=== PATIENT | female | born 1975 | race Hispanic/Latino ===

== ENCOUNTER 2017-10-26 09:29 | Day surgery (SDC) | payer OTHER, SELFPAY ==
[2017-10-19 09:53] VITALS: BMI 28.7
--- NOTE | 2017-10-26 | PATH_ITS ---
[facility] Accession Number: [id number] . 01 Material submitted: . ENDOMETRIAL CURETTINGS . 02 Diagnosis: Endometrial Curettings: Portions of secretory endometrium; negative for glandular hyperplasia, cytologic atypia, and malignancy. [facility]/10/29/2017 . 02 Electronically signed: . Faye Balderas MD, Pathologist NPI- [id number] . 01 Gross description: . Received one formalin-filled container, labeled with the patient's name, labeled endometrial curettings. The specimen consists of a 1.25 cc aggregate of mucoid material and blood, which is filtered, wrapped, and entirely submitted in one cassette. ([id number]) /FRR . 02 Pathologist provided ICD-10: N92.4 . 02 CPT . 816911 Performed at: 01 [facility] [address] [id number] MD Narciso Nguyen MD Phone: [phone] Performed at: 02 [facility] [address] [address] [place], [place] [id number] MD August Villarreal MD Phone: [phone]
[2017-10-26 10:04] VITALS: BP 121/83; PULSE 69; RESP 16; TEMP 36.3; O2SAT 100; BMI 28.7
[2017-10-26] MEDS: LACTATED RINGERS 1,000 ML 100 ML IV (10:12)
--- NOTE | 2017-10-26 10:16 | PM.PREOP ---
Pre-operative Note Interval Note Pre-op Check: History & Physical exam performed today
--- NOTE | 2017-10-26 10:22 | SUR.OPER ---
Lithotomy on padded OR bed, head on pillow, arms secured on padded arm boards at <90 degrees abduction. Legs secured in padded yellow fins stirrups.
[2017-10-26 11:05] VITALS: BP 122/87; PULSE 68; RESP 16; TEMP 36.1; O2SAT 95
--- NOTE | 2017-10-26 11:05 | PM.HP.1 ---
History of Present Illness Date Patient Seen: 10/26/17 Time Patient Seen: 10:01 Chief complaint: [id number] D&C HYSTEROSCOPY; NOVASURE ABLATION Patient History Medical History Anxiety (Acute) Fatigue (Acute) Low vitamin D level (Acute) Menorrhagia (Acute) Surgical History History of third molar tooth extraction (Resolved 1998) Status post delivery (Resolved 09/22/08) Status post delivery (Resolved 03/26/14) Status post tubal ligation (Resolved 03/26/14) Family & Social History Social History: household members spouse,family Tobacco & Substance use: Smoking Status Former smoker alcohol intake current Substance Use Type does not use Meds Home Medications Medication Instructions Recorded Confirmed Type acetaminophen [Tylenol] 325 mg PO PRN PRN 10/26/17 10/26/17 History sumatriptan succinate [Imitrex] 50 mg PO PRN PRN 10/26/17 10/26/17 History Allergies Allergy/AdvReac Type Severity Reaction Status Date / Time No Known Drug Allergies Allergy Verified 10/26/17 09:51 Exam Vital Signs (past 8 hours): Vital Signs - 8 hr 10/26/17 10:04 Temperature 97.3 F L Pulse Rate 69 Respiratory Rate 16 Blood Pressure 121/83 H Pulse Oximetry 100 Pulse Oximetry 100 Oxygen Delivery Method Room Air Narrative Exam Narrative: HEENT: No thyromegaly, no anterior cervical or supraclavicular lymphadenopathy. Lungs:Clear to auscultation bilaterally, no wheezes. Cardiovascular: Regular rate and rhythm, no murmurs, rubs, or gallops. Abdomen: Well-healed scars. No hepatosplenomegaly. No masses palpable. External genitalia: Normal Vagina: Normal Cervix: Normal Bimanual exam: 7 Week size uterus. Mobile.] Rectal: No masses. Assessment & Plan (1) Menorrhagia, premenopausal: Current visit: Yes Status: Acute Plan: Assessment/Plan Narrative: Assessment: 41-year-old with menorrhagia Plan: D&C hysteroscopy with NovaSure endometrial ablation The risks, benefits, and alternatives to the procedure were explained to the patient. The risks including bleeding, infection, and uterine perforation. She understands these risks and agrees to proceed. A full capital P AR-Q was held and consent form was signed.
--- NOTE | 2017-10-26 11:08 | P.HP_ITS ---
History of Present Illness Date Patient Seen: 10/26/17 Time Patient Seen: 10:01 Chief complaint: [id number] D&C HYSTEROSCOPY; NOVASURE ABLATION Patient History Medical History Anxiety (Acute) Fatigue (Acute) Low vitamin D level (Acute) Menorrhagia (Acute) Surgical History History of third molar tooth extraction (Resolved 1998) Status post delivery (Resolved 09/22/08) Status post delivery (Resolved 03/26/14) Status post tubal ligation (Resolved 03/26/14) Family & Social History Social History: household members spouse,family Tobacco & Substance use: Smoking Status Former smoker alcohol intake current Substance Use Type does not use Meds Home Medications Medication Instructions Recorded Confirmed Type acetaminophen [Tylenol] 325 mg PO PRN PRN 10/26/17 10/26/17 History sumatriptan succinate [Imitrex] 50 mg PO PRN PRN 10/26/17 10/26/17 History Allergies Allergy/AdvReac Type Severity Reaction Status Date / Time No Known Drug Allergies Allergy Verified 10/26/17 09:51 Exam Vital Signs (past 8 hours): Vital Signs - 8 hr 3 10/26/17 10:04 Temperature 97.3 F L Pulse Rate 69 Respiratory Rate 16 Blood Pressure 121/83 H Pulse Oximetry 100 Pulse Oximetry 100 Oxygen Delivery Method Room Air Narrative Exam Narrative: HEENT: No thyromegaly, no anterior cervical or supraclavicular lymphadenopathy. Lungs:Clear to auscultation bilaterally, no wheezes. Cardiovascular: Regular rate and rhythm, no murmurs, rubs, or gallops. Abdomen: Well-healed scars. No hepatosplenomegaly. No masses palpable. External genitalia: Normal Vagina: Normal Cervix: Normal Bimanual exam: 7 Week size uterus. Mobile.] Rectal: No masses. Assessment & Plan (1) Menorrhagia, premenopausal: Current visit: Yes Status: Acute Plan: Assessment/Plan Narrative: Assessment: 41-year-old with menorrhagia Plan: D&C hysteroscopy with NovaSure endometrial ablation The risks, benefits, and alternatives to the procedure were explained to the patient. The risks including bleeding, infection, and uterine perforation. She understands these risks and agrees to proceed. A full capital P AR-Q was held and consent form was signed.
[2017-10-26 11:10] VITALS: BP 134/97; PULSE 62; RESP 16; O2SAT 98
--- NOTE | 2017-10-26 11:12 | PM.GYNOP.1 ---
Operative Date/Time/Diagnoses - Date of procedure: 10/26/17 Time of procedure: 11:12 Pre-op diagnosis: Menorrhagia Post-op diagnosis: same Procedure: Procedures Operation Date: 10/26/17 10:45 Actual Procedures Side Surgeon p Hysteroscopy w/ Endometrial Ablation Mer Mendoza MD Indications: Menorrhagia Surgeon: Mer Mendoza Anesthesia Type: General (LMA) Operative Notes Findings: 7 week size anteverted uterus Both fallopian tube ostia observed Thickened posterior endometrium Closure Type: not applicable Specimen(s): endometrial curettings Estimated blood loss (mL): 10 Blood products transfused: none Procedure in detail: After informed consent was obtained, the patient was taken to the operating room where she was placed in the dorsal supine position. After adequate LMA general anesthesia was achieved, she was placed in the dorsal lithotomy position, and prepped and draped in the usual sterile fashion. A time-out was performed. A bivalve speculum was placed into the vagina, and the anterior lip of the cervix grasped with a single-tooth tenaculum. Cervical os was sequentially dilated to the # 9 Hegar dilator. The hysteroscope passed easily into the endometrial cavity with the findings noted above. The hysteroscope was removed. Sharp curettage was performed yielding a moderate amount of endometrial curettings. The uterus was sounded from the internal os to the fundus of the uterus and measured 4.5 cm. This was set on the NovaSure catheter and generator. The NovaSure catheter passed easily into the endometrial cavity. The catheter was opened. The width was 3.0 cm. This indicated a power of 74 w. the cervix was capped, a cavity assessment was performed and passed. The cycle was initiated and lasted 119 sec. At the completion of the cycle catheter was closed, the cervix was on cap, and the catheter was removed from the uterus. The single-tooth tenaculum was removed from the anterior lip of the cervix. The bivalve speculum was removed from the vagina. Sponge, lap, and instrument counts were correct x2. Patient tolerated the procedure well, and was taken to PACU in stable condition. Complications: none Post-operative Condition: stable Disposition: PACU Plan for aftercare: Home after recovery
[2017-10-26 11:15] VITALS: BP 131/93; PULSE 63; RESP 16; O2SAT 98
[2017-10-26] MEDS: fentaNYL 100 MCG/2 ML INJ IV ×2 (11:20→11:27)
[2017-10-26] MEDS: OXYCODONE/ACETAMINOPHEN 5/325 TABLET 1 TAB PO ×2 (11:35→11:52)
[2017-10-26 11:37] VITALS: BP 119/90; PULSE 79; RESP 17; TEMP 36.2; O2SAT 98
[2017-10-26 11:45] VITALS: BP 112/84; PULSE 77; RESP 16; TEMP 36; O2SAT 98
== END 2017-10-26 11:57 | disposition home or self-care (01) ==
PROVIDERS: PCP Family Medicine; Visit Provider Obstetrics & Gynecology
PROC: 0U5B8ZZ Destruction of Endometrium, Via Natural or Artificial Opening Endoscopic (ICD-10-PCS; CPT 58563; principal; 2017-10-26 10:45)
DX: N92.0 Excessive and frequent menstruation with regular cycle (principal); F41.9 Anxiety disorder, unspecified; R53.83 Other fatigue; E55.9 Vitamin D deficiency, unspecified
CPT/HCPCS: 58563; J1100; J1885; J2250; J2405; J2704; J3010

== ENCOUNTER 2019-05-19 05:56 | Day surgery (SDC) | payer OTHER, SELFPAY ==
[2019-05-09 13:39] VITALS: BMI 35.1
[2019-05-19] VITALS (16 sets, daily range): BP systolic 96–124; BP diastolic 63–82; PULSE 71–87; RESP 12–20; TEMP 36.2–37.1; O2SAT 93–98; BMI 35.1
--- NOTE | 2019-05-19 | PATH_ITS ---
[facility] Accession Number: [id number] . 01 Material submitted: . uterus - UTERUS, BILATERAL FALLOPIAN TUBES . 01 Clinical history: . [facility] W/YADI SALPINGECTOMY *OPB* . 02 Diagnosis: Uterus, Bilateral Fallopian Tubes, Laparoscopic Supracervical Hysterectomy and Bilateral Salpingectomy (Morcellated Uterine Specimen Weight 78 grams): Secretory endometrium; negative for glandular hyperplasia, cytologic atypia or malignancy. Myometrium with multiple leiomyomas (0.2 - 2.6 cm in greatest dimension). Uterine serosa with no significant histomorphologic abnormality. Fallopian tube #1 with benign paratubal cysts (0.1 cm); negative for atypia or malignancy. Fallopian tube #2 with benign paratubal cysts (0.2 cm); negative for atypia or malignancy. [facility] 05/22/2019 1247 Local . 02 Electronically signed: . Faye Balderas MD, Pathologist NPI- [id number] . 01 Gross description: . Received in formalin, labeled uterus, yadi fallopian tubes, is a morcellated uterus (78 grams, 11.5 x 7.5 x 3.3 cm in aggregate) and two fimbriated fallopian tubes (tube #1: length-3.8 cm, diameter-0.6 cm; tube #2: length-4.8 cm, diameter-0.3 cm). The ovaries and cervix are absent. The specimen cannot be oriented and the endometrium and myometrium cannot be grossly measured. The parenchyma is mccann and contains multiple solid firm white whorled well-circumscribed homogenous nodules (0.2 x 0.1 x 0.1 cm-2.6 x 1.3 x 1.3 cm). The serosa is mccann, smooth and shiny. The fallopian tubes have arriola-mccann smooth shiny serosa and mccann unremarkable lumens. Section code: (A1-A4) parenchyma, sales utility representative; (A5) fallopian tube #1, sales utility representative serial sections; (A6) fimbria #1, bivalved, entirely submitted; (A7) fallopian tube #2, sales utility representative serial sections; (A8) fimbria #2, bivalved, entirely submitted. ([id number]) /MRV 05/20/2019 [facility]2 Local . 02 Pathologist provided ICD-10: Z98.890, D25.9 . 02 CPT . 425939 Performed at: 01 [facility] [address] [place] [address], [place], [place] [id number] MD Narciso Nguyen MD Phone: [phone] Performed at: 02 [facility] [address] [place], [place] [id number] MD Kizzy Wheeler MD Phone: [phone]
[2019-05-19] MEDS: LACTATED RINGERS 1,000 ML 100 ML IV ×4 (06:55→20:48)
[2019-05-19] MEDS: LACTATED RINGERS 1,000 ML 42 ML IV (07:15)
--- NOTE | 2019-05-19 07:33 | PM.PREOP ---
Pre-operative Note Interval Note History & Physical reviewed/Exam performed by Physician: Yes Changes to H&P: No
[2019-05-19] MEDS: APREPITANT 40 MG CAPSULE PO (07:41)
[2019-05-19] MEDS: CEFAZOLIN 2 GM/100 ML FROZ.PIGGY IV (07:52)
--- NOTE | 2019-05-19 08:24 | SUR.OPER ---
Lithotomy on padded OR bed. North Pad Positioner under torso. Head on pillow, arms padded and tucked at sides. Legs secured in padded yellow fins stirrups.
[2019-05-19] MEDS: BUPIVACAINE 0.5% W/ EPI (PF) 30 ML VIAL INJ (08:35)
[2019-05-19] MEDS: ROPIVACAINE 0.2% PF 2 MG/ML 10ML AMP 10 ML INJ (08:38)
[2019-05-19] MEDS: HYDROMORPHONE 2 MG INJ IV (09:58)
[2019-05-19] MEDS: ONDANSETRON 4 MG/2 ML INJ IV ×2 (10:07→16:17)
[2019-05-19] MEDS: KETOROLAC 30 MG/ML VIAL IV ×3 (10:56→23:32)
[2019-05-19] MEDS: METOCLOPRAMIDE 10 MG/2 ML INJ IV ×2 (11:06→17:41)
--- NOTE | 2019-05-19 12:01 | PC.NURSE ---
Addendum entered by Marcie Hurley R.N. 05/19/19 12:43: Assisted up to BSC where patient voided 50 ml clear yellow urine. C/O 6-7/10 abd pain- 1 mg IV Morphine admin per new order from Dr Mendoza. Became a bit nauseated with activity, but reports overall nausea has improved. Given fresh ice pack for her belly and her head (headache). Trying to take a few sips of tea for the caffeine. Encouraged to call with needs/concerns. Light and belongings within reach, bed alarm on. at bedside and attentive. Original Note: Post-op: Arrived to floor at 1040. Drowsy, but oriented X3. Lap site dressings C/D/I, no vaginal bleeding or spotting noted. C/O 7/10 crampy abd pain as well as nausea- medicated with IV Toradol and Reglan for the same. Faxed note to Dr Mendoza in surgery requesting additional pain med options (the only other thing she has is Percocet, and she didn't think she could keep that down without vomiting). Has been given ice pack as well as warm blankets to try on her belly. Patient got up to BSC with this engineering writer and voided 100 ml clear yellow urine (at 1135). C/O burning with urination. Back in bed now, resting in R side with eyes closed. Respirations regular and unlabored. Appears comfortable. Will allow to rest and complete admit assessment when she's awake and feeling better. Call light within reach, bed alarm on. SCD's on BLE's.
[2019-05-19] MEDS: MORPHINE 2 MG/ML INJ 1 MG IV ×2 (12:24→16:12)
[2019-05-19] MEDS: OXYCODONE/ACETAMINOPHEN 5/325 TABLET 1 TAB PO ×2 (14:13→20:48)
[2019-05-19] MEDS: DOCUSATE 250 MG CAPSULE PO (20:48)
--- NOTE | 2019-05-19 23:46 | PC.NURSE ---
Addendum entered by Padmini Forrest R.N. 05/20/19 07:00: Complaining of nausea again this morning although has been asleep for past hour; medicated with Reglan. Addendum entered by Padmini Forrest R.N. 05/20/19 05:38: Up to bathroom and states pain is now 8/10 so medicated with scheduled Toradol as well as Percocet. Standing at edge of bed and states I don't feel well; thinks she may have a gas bubble. Assisted to sit in chair as patient admits to feeling light headed and nauseated. Medicated with Zofran for nausea. Assisted back to bed and had couple dry heaves but no emesis. Agreeable to trying bites of saltine crackers. Addendum entered by Padmini Forrest R.N. 05/20/19 01:12: Complains of 7/10 pain so medicated with Percocet. Original Note: Patient is alert and oriented. Breath sounds CTA with RA sat of 98%. HRR. Denies nausea. BT hypoactive but is passing flatus. Having 7/10 incisional pain (cramping, pressure, sharp) and medicated with Toradol but is aware both Morphine and Percocet are available for pain control; has ice to abdomen for comfort. Also having 2/10 headache but states ice pack is helping and pain is tolerable. Able to turn self in bed. Dressings x 4 to abdomen are CDI except for serosanguinous drainage on left abdominal dressing. States she is having some burning pain at start and end of urination; will monitor and inform MD in a.m. if continues. Up to bathroom with SBA. No vaginal bleeding noted. Wearing bilateral calf SCD's. Fall risk score is low.
[2019-05-20] MEDS: OXYCODONE/ACETAMINOPHEN 5/325 TABLET 1 TAB PO ×4 (01:11→13:33)
--- NOTE | 2019-05-20 05:16 | PM.GYNOP.1 ---
Operative Date/Time/Diagnoses Date of procedure: 05/19/19 Time of procedure: 10:30 Pre-op diagnosis: Failed endometrial ablation Dysmenorrhea Menorrhagia Dyspareunia Post-op diagnosis: same Procedure & Clinicians Procedure: Procedures Operation Date: 05/19/19 07:45 Actual Procedures Side Surgeon p Laparoscopic Supracervical Hysterectomy W/ Bilateral Salpingectomy Mer Mendoza MD Indications: Dyspareunia Dysmenorrhea Menorrhagia Failed endometrial ablation Surgeon: Mer Mendoza Lens Shaper Grinder: Geena Cuba Anesthesia Type: General Operative Notes Findings: Ten week size uterus Normal ovaries Tubes status post ligation bilaterally Normal liver gallbladder Appendix not visualized Omental to anterior abdominal wall adhesion Closure Type: primary Specimen(s): left tube, right tube and uterus Applied: catheter Estimated blood loss (mL): 100 Blood products transfused: none Procedure in detail: The patient was taken to the operating room where she was placed in the dorsal supine position. After adequate general endotracheal anesthesia was achieved, she was placed in the dorsal lithotomy position, and prepped and draped in the usual sterile fashion. A timeout was performed. A bivalve speculum was placed into the vagina and the anterior lip of the cervix grasped with a single-tooth tenaculum. The cervical os was sequentially dilated until the ZUMI uterine manipulator could pass easily into the endometrial cavity. The single-tooth tenaculum was removed from the anterior lip of the cervix, and the bivalve speculum was removed from the vagina. Attention was then turned to the abdomen where 6 mL of half percent Marcaine with epinephrine were injected in the umbilical fold. A 5 mm incision was made. The Verhees needle was placed into the peritoneal cavity, and its placement confirmed by aspiration and drop test. The Verhees needle was removed. A 5 mm trocar was placed without difficulty. 2 other incisions were made midway between the pubic symphysis and umbilicus after 5 mL of half percent Marcaine with epinephrine were injected. These were 5 mm incisions. Two 5 mm trochars were placed under direct visualization. The right tube was grasped with an atraumatic grasper. Using the plasma kinetic with settings of 40 W the mesosalpinx was cauterized and cut all the way down to the cornua of the uterus. The cornua of the uterus was then grasped with an atraumatic grasper. The utero-ovarian ligaments were cauterized and cut. The round ligament and broad ligament was cauterized and cut with plasma kinetic. Hemostasis was achieved. The bladder flap was created using the plasma kinetic with cautery and cut detention across. The uterine arteries on the right side were extensively cauterized with plasma kinetic. All of this was repeated on the left side. The remainder of the bladder flap was created using the plasma kinetic, and the bladder taken down off the lower uterine segment and cervix. Using the Endoloop, the cervix was amputated from the uterus 2 cm above the uterosacral ligaments, after the ZUMI uterine manipulator was removed from the uterus. There was a small amount of bleeding noted from the posterior edge of the cervix, and this was cauterized for hemostasis. A sponge stick was placed into the vagina. 6 mL of half percent Marcaine with epinephrine were injected above the pubic symphysis. A 12 mm trocar was placed. The 12 mm trocar was removed. An Endobag was placed through the suprapubic incision and the uterus and tubes were placed into the endobag. The Guillaume placed into the endobag. The uterus was hand morcellated in approximately 10 pieces. The Endobag was removed from the peritoneal cavity. The pelvis was copiously irrigated with warm normal saline. No bleeding was noted. 20 cc of 0.2% ropivacaine were placed over the pedicles. The instruments were removed from the abdomen. The CO2 was allowed to escape. The suprapubic incision was closed on the fascia with 0 Vicryl. The subcutaneous layer was closed with 2 simple interrupted sutures with 3 0 Vicryl. All of the incisions were closed with 4-0 Biosyn in a subcuticular fashion. Steri-Strips, 2 x 2, and op site were placed. The moistened sponge stick was removed from the vagina. Sponge, lap, and instrument counts were correct x-2. The patient tolerated the procedure well, was taken to PACU in stable condition. Complications: none Post-operative Condition: stable Disposition: PACU Plan for aftercare: To acute care after recovery
[2019-05-20] MEDS: KETOROLAC 30 MG/ML VIAL IV (05:24)
[2019-05-20 05:29] VITALS: BP 102/64; PULSE 73; RESP 16; TEMP 36.6; O2SAT 100
[2019-05-20] MEDS: ONDANSETRON 4 MG/2 ML INJ IV (05:29)
[2019-05-20 06:24] LABS: Add Manual Diff / Slide Review NO; Basophils Absolute Auto 0 /uL (0-100); Basophils Percent Auto 0.2 % (0-2); Eosinophils Absolute Auto 0 /uL (0-450); Eosinophils Percent Auto 0.3 % (2-4); Hemoglobin 12.3 g/dL (12.0-16.0); Lymphocytes Absolute Auto 3500 /uL (1100-4500); Lymphocytes Percent Auto 27.7 % (25-40); Mean Corpuscular HGB Conc 34.2 % (30-36); Mean Corpuscular Hemoglobin 29.7 PG (26-34); Mean Corpuscular Volume 86.9 fL (80-100); Monocytes Absolute Auto 700 /uL (0-900); Monocytes Percent Auto 5.8 % (3-14); Neutrophils Absolute Auto 8300 /uL (1500-7000); Platelet Count 240 X10^3/uL (150-400); Red Blood Cell Count 4.14 X10^6/uL (4.0-5.2); Red Cell Distribution Width 12.7 % (11.6-14.8); White Blood Cell Count 12.5 X10^3/uL (4.5-11.0)
[2019-05-20] MEDS: LACTATED RINGERS 1,000 ML 100 ML IV (06:55)
[2019-05-20] MEDS: METOCLOPRAMIDE 10 MG/2 ML INJ IV ×2 (06:59→12:45)
[2019-05-20 08:00] VITALS: BP 105/76; PULSE 80; RESP 18; TEMP 37.2; O2SAT 99
[2019-05-20] MEDS: DOCUSATE 250 MG CAPSULE PO (09:40)
[2019-05-20 12:30] VITALS: BP 118/70; PULSE 70; RESP 16; TEMP 36.8; O2SAT 99
[2019-05-20] MEDS: IBUPROFEN 600 MG TABLET PO (13:33)
--- NOTE | 2019-05-20 13:39 | P.DS_ITS ---
History of Present Illness History of Present Illness Date Patient Seen: 05/20/19 Time Patient Seen: 13:40 Chief complaint: [id number] [facility] W/YADI SALPINGECTOMY *OPB* Narrative: Patient is a 43-year-old who underwent a laparoscopic supracervical hysterectomy with bilateral salpingectomy on May 19, 2019. Due to nausea she was kept overnight. The nausea has resolved. Her pain is well managed. She is ambulating and tolerating a diet. She has voided without the catheter. Discharge Providers Provider Discharge Date: 05/20/19 Primary care physician: Hamlet Duque MD Discharge provider: Mer Mendoza MD Summary Hospital Course Discharge Diagnosis: Patient is a 43-year-old who was admitted on May 19, 2019 for a scheduled laparoscopic supracervical hysterectomy with bilateral salp ingectomy due to pelvic pain, menorrhagia, and a failed endometrial ablation. She underwent this procedure without complication. Due to nausea she was kept overnight. The nausea has resolved. Pain is well controlled. She has voided without the catheter. Hospital Course: Her postoperative course included nausea. This has resolved. She is tolerating a diet, ambulating, and has voided without catheter. Status at Discharge Cognitive/behavioral status at discharge: oriented Functional status at discharge: independent ambulation Overall status at discharge: patient is progressing back to baseline Time Spent with Patient Time spent: Less than 30 minutes Exam Vital Signs (past 8 hours): - 05/20/19 08:00 05/20/19 12:30 Temperature 99 F 98.3 F Pulse Rate 80 70 Respiratory Rate 18 16 Blood Pressure 105/76 118/70 Pulse Oximetry 99 99 Oxygen Delivery Method Room Air Oxygen Flow Rate 0 Narrative Exam Narrative: Generally: Patient walking around in room, no acute distress Lungs: Clear to auscultation bilaterally Cardiovascular: Regular rate and rhythm Abdomen: Soft, good bowel sounds Incisions: Clean dry and intact with op sites. There is a small amount of dried blood on the left gauze. Extremities: Negative Homans, no edema Objective Labs Result Diagrams: 05/20/19 05:49 Labs: Laboratory Results - last 24 hr 05/20/19 05:49 WBC 12.5 H RBC 4.14 Hgb 12.3 Hct 36.0 MCV 86.9 MCH 29.7 MCHC 34.2 RDW 12.7 Plt Count 240 Neut % (Auto) 66.0 Lymph % (Auto) 27.7 [place] % (Auto) 5.8 Eos % (Auto) 0.3 L Baso % (Auto) 0.2 Neut # (Auto) 8300 H Lymph # (Auto) 3500 [place] # (Auto) 700 Eos # (Auto) 0 Baso # (Auto) 0 Discharge Plan Discharge Plan Patient Disposition: Home Discharge comment: Call with fever, chills, redness or drainage around incisions or bleeding vaginally more than spotting Discharge Med Rec/Prescriptions Prescriptions: New metoclopramide HCl [Reglan] 10 mg tablet 10 mg PO Q6H PRN (Reason: nausea and vomiting) Qty: 20 RF: 0 oxycodone-acetaminophen [Percocet] 5-325 mg tablet 1 tab PO Q4-6H PRN (Reason: pain) Qty: 30 RF: 0 Continued acetaminophen [Tylenol] 325 mg Tablet 325 mg PO PRN PRN (Reason: Pain (Scale Score 1-3)) RF: 0 sumatriptan succinate [Imitrex] 50 MG tablet 50 mg PO PRN PRN (Reason: Headache) RF: 0 Probiotic Acidophilus 1.5 mg (250 million cell) Capsule 2,000 mmu cells PO BID RF: 0 Follow up/Referrals: Geena Cuba MD [Physician] - 2 Weeks (appt:06/10 @ 2:[address] cuba ) Hamlet Duque MD [Primary Care Provider] - Discharge Orders: Discharge (Order); Ordered 05/20/19 Ordered By: Mer Menodza Provider Discharge Instructions Diet: Regular Skin/Wound/Dressing Care Report to your healthcare provider any signs of infection, such as:: chills, fever, increased pain, unusual drainage and unusual redness Dressing: Remove outer plastic dressings and guaze tomorrow after a shower Other wound treatment: Ice to incisions Visit Report/Discharge Packet Instructions: DI for Hysterectomy, DI for Laparoscopy, Oxycodone/Acetaminophen (By mouth) Stand Alone Forms: Surgery Discharge Discharge Data Primary Care Provider: Hamlet Duque Attending Provider: Mer Mendoza
--- NOTE | 2019-05-20 15:50 | PC.NURSE ---
Discharge: Late entry IV dc'd intact. Reviewed all d/c instructions thoroughly with patient. Plus, Dr Mendoza did her own patient teaching when she saw her. She knows it's okay to shower tomorrow and then remove outer dressings. Diet as tolerated, activity as directed by Dr Mendoza. Advised no sexual intercourse until MD says it's okay. No baths until cleared by MD. Given script for Percocet, script for Reglan was sent to [facility]. Medicated with Ibuprofen and Percocet before the ride home. Given education hand-outs for Laparoscopy, Hysterectomy and Percocet. Advised to take a stool softener as long as she's on the Percocet, and she already has some at home. Reviewed s/sx with which to call Dr Mendoza/[place]. Patient verbalized understanding of all d/c info and stated no further questions. All personal belongings sent with patient at discharge. Wheeled out to private vehicle by this conventional underwriter.
== END 2019-05-20 15:56 | disposition home or self-care (01) ==
LOC: OR 05:58 → AC 06:08
PROVIDERS: Family Provider Family Medicine; PCP Family Medicine; Visit Provider Obstetrics & Gynecology
PROC: 0UT94ZL Resection of Uterus, Supracervical, Percutaneous Endoscopic Approach (ICD-10-PCS; CPT 58542; principal; 2019-05-19 07:45)
DX: D25.9 Leiomyoma of uterus, unspecified (principal); Z98.890 Other specified postprocedural states; N92.0 Excessive and frequent menstruation with regular cycle; F41.9 Anxiety disorder, unspecified; R53.83 Other fatigue; E55.9 Vitamin D deficiency, unspecified; N94.10 Unspecified dyspareunia; N83.8 Other noninflammatory disorders of ovary, fallopian tube and broad ligament; K66.0 Peritoneal adhesions (postprocedural) (postinfection)
CPT/HCPCS: 58542; 36415; 85025; J0690; J1100; J1170; J1885; J2250; J2270; J2405; J2704; J2765; J2795; J3010; J8501

== ENCOUNTER 2019-06-17 19:10 | Emergency (ER) | payer OTHER, SELFPAY ==
[2019-05-19 13:47] VITALS: BMI 35.1
[2019-06-17 19:10] VITALS: BP 111/97; PULSE 85; RESP 14; TEMP 36.9; O2SAT 100
--- NOTE | 2019-06-17 19:28 | PC.NURSE ---
Had hysterectomy on 05/19/19. Was at work today and stated started bleeding.
--- NOTE | 2019-06-17 20:14 | ED.FEMALEGU ---
HPI - Female Genitourinary <GONSALO Kraus - Last Filed: 06/17/19 23:50> General Chief complaint: Vaginal Bleeding Stated complaint: states problems with hysterectomy, bleeding Time Seen by Provider: 06/17/19 19:37 Source: patient Mode of arrival: Ambulatory Limitations: no limitations History of Present Illness HPI Narrative: This is a 43-year-old female, nonsmoker, who presents to ED with chief complain of bright red vaginal bleeding. Patient had a laparoscopic partial supracervical hystrectomy with salpingectomy on 05/19/[address] Mendoza with remaining bilateral ovaries secondary to uterin cyst and heavy vaginal bleeding. Patient initially had some brown vaginal bleeding after the surgery but today was 1st time she had bright red vaginal bleeding on her underwear and when she use restroom into the toilet. She describes the amount as like 1st day of menstrual bleeding as light. Patient reports bilateral abdominal cramping discomfort. Patient denies chest pain, breathing difficulty. The patient has been having anxiety like symptoms and reports dizziness, chest tightness, and some nausea since last week intermittently. Patient states several situational social events had happened this past year. The patient reports she had gone back to work past week. She had an orgasm w/o vaginal penetration by clitorial stimulation. The patient was instructed 6-8 weeks of pelvic rest. Related Data Home Medications Medication Instructions Recorded Confirmed acetaminophen [Tylenol] 325 mg PO PRN PRN 10/26/17 06/13/19 sumatriptan succinate [Imitrex] 50 mg PO PRN PRN 10/26/17 06/13/19 Probiotic Acidophilus 2,000 mmu cells PO BID 05/19/19 06/13/19 Previous Rx's Medication Instructions Recorded hydroxyzine HCl 25 mg PO TID PRN #10 tab 06/17/19 Allergies Allergy/AdvReac Type Severity Reaction Status Date / Time No Known Drug Allergies Allergy Verified 06/13/19 14:28 Review of Systems <GONSALO Kraus - Last Filed: 06/17/19 23:50> Review of Systems Narrative: General: Denies fever, chills, fatigue, malaise, sweats. HEENT: Denies sinus pain, ear pain, sore throat, difficulty swallowing, (+) intermittent dizziness. Respiratory: Denies dyspnea, cough, wheezing, hemoptysis, sputum. Cardiovascular: Denies chest pain, palpitations, orthopnea, edema. Gastrointestinal: Denies (+) nausea, vomiting, (+) bilateral low abdominal cramping pain, diarrhea, constipation, melena. : Denies dysuria, frequency, incontinence, hematuria, urinary retention. Reports bright red vaginal bleeding/spotting since this afternoon. Musculoskeletal: Denies weakness, joint pain or bony pain. Skin: Denies rash, skin lesions, or other. Neurologic: Denies weakness, headache, numbness, change in speech, confusion, seizures, incoordination. Psychiatric: Intermittent anxiety. 12-point review of systems is negative except for those stated above. Patient History <GONSALO Kraus - Last Filed: 06/17/19 23:50> Medical History (Updated 06/17/19 @ 23:39 by GONSALO Kraus) Anxiety (Chronic) Fatigue (Chronic) Low vitamin D level (Chronic) Menorrhagia (Chronic) Surgical History (Updated 06/17/19 @ 22:45 by GONSALO Kraus) History of third molar tooth extraction (Resolved 1998) S/p partial hysterectomy with remaining cervical stump (Acute) Status post delivery (Resolved 09/22/08) Status post delivery (Resolved 03/26/14) Status post dilation and curettage (Resolved 2010) Status post hysteroscopic ablation of endometrium (Resolved 10/26/17) Status post tubal ligation (Resolved 03/26/14) alcohol intake frequency: 0-2 drinks per day Substance Use Type: does not use Exam <GONSALO Kraus - Last Filed: 06/17/19 23:50> Narrative Exam Narrative: General appearance: well developed, well nourished, in no acute distress. Head: normocephalic, atraumatic, no scalp lesions, non-tender. ENT: Hearing grossly intact. Nose without bleeding, purulent discharge, septal hematoma or deviation. Turbinate without erythema or swelling. Facial sinuses nontender to palpate. Mucous membrane moist, no mucosal lesion. Throat without erythema, tonsillar hypertrophy or exudate. Uvula in midline, airway patent. Neck/Thyroid: neck supple, full range of motion, no visible masses or meningeal signs. No JVD, non-tender without lymphadenopathy. Skin: no suspicious rashes, lesions over visible areas. Warm and dry and appropriate color for ethnicity. Heart: no clubbing, no cyanosis, no edema. S1 and S2 normal. RRR w/o murmurs, clicks, or bruits. Lungs: Breathing even and unlabored. No stridor. No accessory muscles used. Able to speak in full sentences. Chest: normal shape and expansion. Abdomen: non-obese, non-distended. TTO in bilateral lower abdomen. Soft and intact bowel sounds in all quads. Neurologic: alert and oriented. Cognitive exam, STUMPER FELLER and PNS grossly intact on informal exam. Psych: good eye contact, normal affect. Became tearful when discussing her situational stresses. Initial Vital Signs Initial Vital Signs: Vital Signs Temperature 98.5 F 06/17/19 19:10 Pulse Rate 85 06/17/19 19:10 Respiratory Rate 14 06/17/19 19:10 Blood Pressure 111/97 H 06/17/19 19:10 Pulse Oximetry 100 06/17/19 19:10 <Cr Tejeda DO - Last Filed: 06/17/19 23:58> Initial Vital Signs Initial Vital Signs: Vital Signs Temperature 98.5 F 06/17/19 19:10 Pulse Rate 85 06/17/19 19:10 Respiratory Rate 14 06/17/19 19:10 Blood Pressure 111/97 H 06/17/19 19:10 Pulse Oximetry 100 06/17/19 19:10 Scores <GONSALO Kraus - Last Filed: 06/17/19 23:50> GCS [place] coma scale eye opening: Spontaneous [place] coma scale verbal response: Orientated [place] coma scale motor response: Obey commands Bryson coma scale total score: 15 Course <GONSALO Kraus - Last Filed: 06/17/19 23:50> Course Course Narrative: Dr. Cuba consulted at 2019. Orders Ordered: ED Orders 06/17/19 20:50 Basic Metabolic Panel Stat Complete Blood Count AUTO DIFF Stat 06/17/19 21:32 CT abdomen pelvis w con Stat Discontinued Medications Ketorolac Tromethamine (Toradol) 30 mg IV NOW ONE Stop: 06/17/19 22:26 Last Admin: 06/17/19 22:39 Dose: 30 mg Documented by: DIPTI Lorazepam (Ativan) 0.5 mg PO NOW ONE Stop: 06/17/19 20:15 Last Admin: 06/17/19 20:42 Dose: 0.5 mg Documented by: TENNILLE Vital Signs Vital signs: Vital Signs - 8 hr 06/17/19 19:10 06/17/19 22:45 06/17/19 23:47 Temperature 98.5 F Pulse Rate 85 62 64 Respiratory Rate 14 12 Blood Pressure 111/97 H Blood Pressure [Left Arm] 121/82 121/81 Pulse Oximetry 100 100 100 06/17/19 23:53 Temperature Pulse Rate 62 Respiratory Rate 15 Blood Pressure 121/81 Blood Pressure [Left Arm] Pulse Oximetry 100 <Cr Tejeda DO - Last Filed: 06/17/19 23:58> Orders Ordered: ED Orders 06/17/19 20:50 Basic Metabolic Panel Stat Complete Blood Count AUTO DIFF Stat 06/17/19 21:32 CT abdomen pelvis w con Stat Discontinued Medications Ketorolac Tromethamine (Toradol) 30 mg IV NOW ONE Stop: 06/17/19 22:26 Last Admin: 06/17/19 22:39 Dose: 30 mg Documented by: DIPTI Lorazepam (Ativan) 0.5 mg PO NOW ONE Stop: 06/17/19 20:15 Last Admin: 06/17/19 20:42 Dose: 0.5 mg Documented by: TENNILLE Vital Signs Vital signs: Vital Signs - 8 hr 06/17/19 19:10 06/17/19 22:45 06/17/19 23:47 Temperature 98.5 F Pulse Rate 85 62 64 Respiratory Rate 14 12 Blood Pressure 111/97 H Blood Pressure [Left Arm] 121/82 121/81 Pulse Oximetry 100 100 100 06/17/19 23:53 Temperature Pulse Rate 62 Respiratory Rate 15 Blood Pressure 121/81 Blood Pressure [Left Arm] Pulse Oximetry 100 MDM - Female Genitourinary <GONSALO Kraus - Last Filed: 06/17/19 23:50> Differential Diagnosis Differential diagnosis: Likely ruptured ovarian cyst and other (post-surgical hematoma/bleeding, kidney stones, ruptured ovaries, menstrual like bleeding) Medical Records Attestation: I reviewed the patient's medical records. Lab Data Attestation: I reviewed the patient's lab results. Result diagrams: 06/17/19 20:50 06/17/19 20:50 Labs: Lab Results 06/17/19 06/17/19 Range/Units 20:50 20:50 WBC 8.3 (4.5-11.0) X10^3/uL RBC 4.53 (4.0-5.2) X10^6/uL Hgb 13.4 (12.0-16.0) g/dL Hct 39.4 (36-46) % MCV 86.8 (80-100) fL MCH 29.6 (26-34) PG MCHC 34.1 (30-36) % RDW 12.7 (11.6-14.8) % Plt Count 285 (150-400) X10^3/uL Neut % (Auto) 48.7 L (50-75) % Lymph % (Auto) 42.6 H (25-40) % [place] % (Auto) 6.5 (3-14) % Eos % (Auto) 1.5 L (2-4) % Baso % (Auto) 0.7 (0-2) % Neut # (Auto) 4000 (9466-2848) /uL Lymph # (Auto) 3500 (8890-8877) /uL [place] # (Auto) 500 (0-900) /uL Eos # (Auto) 100 (0-450) /uL Baso # (Auto) 100 (0-100) /uL Sodium 138 (137-145) mmol/L Potassium 4.2 (3.4-5.1) mmol/L Chloride 100 (98-107) mmol/L Carbon Dioxide 28 (22-32) mmol/L BUN 22 H (7-17) mg/dL Creatinine 0.70 (0.52-1.04) mg/dL Estimated GFR > 60.0 (>60) mL/min BUN/Creatinine Ratio 31.4 H (6-22) Glucose 93 (70-100) mg/dL Calcium 9.8 (8.4-10.2) mg/dL Urine Dip Bedside Urine Glucose Negative Bedside Urine Bilirubin - Negative Bedside Urine Ketone +/- 5 Urine Specific [place] 1.005 Bedside Urine Occult Blood +/- Bedside Urine pH 6.0 Bedside Urine Protein +/- 15 Bedside Urine Urobilinogen - Negative Bedside Urine Nitrite - Negative Bedside Urine Leukocytes - Negative Esterase Imaging Data CT scan - abdomen/pelvis: Radiologist's Impression: Night CT preliminary read. 1. No Active pelvic bleeding evidence by no pooling of contrast in the pelvis or vagina, 2. Postsurgical changes in lower abdomen anterior wall- 2 tiny dots in the subcutaneous tissues of the lower anterior abdominal wall (axial image 72). Tiny calcifications verses a miniscule area of subcutaneous bleeding. 3. No evidence of bowel obstruction or free air. 4. Normal appendix MDM Narrative Medical decision making narrative: Dr. Cuba consulted over the phone for post partial hysterectomy with cervical stump 29 days ago with bright red vaginal bleeding which started this afternoon and now slowed to spotting. Was informed that about 25% woman who has same procedure does have menstrual like vaginal bleeding. Patient reports symptoms intermittent anxiety symptoms such as dizziness, mild nausea with chest tightness since last week with increase situational stress in her life. Patient is very concerned of days vaginal bleeding. Stable H&H today with unremarkable chemistry with stable vital signs. CT of abdomen indicates no active vaginal or pelvic bleeding. No evidence of bowel obstruction or free air with normal appendectomy. Incidental finding of 2 tiny dots in subcutaneous tissue of lower anterior abdominal wall which could be tiny calcification versus of miniscule area of subcutaneous bleeding. Urine showed small amount of ketones and occult blood with protein without urine nitrite or leuko esterase. Patient was medicated with Ativan PO which calmed her emotions and states feeling much better. IV Toradol provided for lower bilateral abdominal cramping which improved her symptoms. Patient discharged to home with a few tabs of hydroxyzine for anxiety symptoms. Return precautions were discussed with the patient and advised to follow-up with PCP with her anxiety symptoms for other milder medication options. Patient verbalized understanding and agrees with treatment plan. <Cr Tejeda, DO - Last Filed: 06/17/19 23:58> Lab Data Labs: Lab Results 06/17/19 06/17/19 Range/Units 20:50 20:50 WBC 8.3 (4.5-11.0) X10^3/uL RBC 4.53 (4.0-5.2) X10^6/uL Hgb 13.4 (12.0-16.0) g/dL Hct 39.4 (36-46) % MCV 86.8 (80-100) fL MCH 29.6 (26-34) PG MCHC 34.1 (30-36) % RDW 12.7 (11.6-14.8) % Plt Count 285 (150-400) X10^3/uL Neut % (Auto) 48.7 L (50-75) % Lymph % (Auto) 42.6 H (25-40) % [place] % (Auto) 6.5 (3-14) % Eos % (Auto) 1.5 L (2-4) % Baso % (Auto) 0.7 (0-2) % Neut # (Auto) 4000 (5090-2472) /uL Lymph # (Auto) 3500 (8158-7561) /uL [place] # (Auto) 500 (0-900) /uL Eos # (Auto) 100 (0-450) /uL Baso # (Auto) 100 (0-100) /uL Sodium 138 (137-145) mmol/L Potassium 4.2 (3.4-5.1) mmol/L Chloride 100 (98-107) mmol/L Carbon Dioxide 28 (22-32) mmol/L BUN 22 H (7-17) mg/dL Creatinine 0.70 (0.52-1.04) mg/dL Estimated GFR > 60.0 (>60) mL/min BUN/Creatinine Ratio 31.4 H (6-22) Glucose 93 (70-100) mg/dL Calcium 9.8 (8.4-10.2) mg/dL Urine Dip Bedside Urine Glucose Negative Bedside Urine Bilirubin - Negative Bedside Urine Ketone +/- 5 Urine Specific [place] 1.005 Bedside Urine Occult Blood +/- Bedside Urine pH 6.0 Bedside Urine Protein +/- 15 Bedside Urine Urobilinogen - Negative Bedside Urine Nitrite - Negative Bedside Urine Leukocytes - Negative Esterase Discharge Plan Departure Patient Disposition: Home Clinical Impression: Postoperative vaginal bleeding following genitourinary procedure, Situational anxiety Instructions: DI for Hysterectomy, DI for Anxiety -- Adult Activity Restrictions/Additional Instructions: You have been diagnosed with [bright red vaginal bleeding status post partial hysterectomy. Today's blood count was normal. No increase in WBC indicating an infection with unremarkable chemistry test. CT test shows no active bleeding in pelvis or vagina, normal appendectomy, no evidence of bowel obstruction. Urine does not appears to be having on infection. Dr. Cuba consulted and informed that about quarter of female who had same surgery does have vaginal bleeding like period after the surgery.]. What to do: *Take your medications as directed. You can take [id number] Tylenol 650 mg up to 4 times a day as needed and ibuprofen 400-600 mg 3 times a day with food as needed for discomfort. Hydroxyzine has been transmitted to Ever and he can take this when you have anxiety as needed. This may cause drowsiness so please take precautions. *Follow up with your primary care provider in 2-3 days, call for an appointment and Dr. Smith if vaginal bleeding persists. Let them know you were seen in the ED and that we asked you to be seen in follow up. *Return to ED if you have any new, worsening, or concerning symptoms, such as [chest pain, breathing difficulty, unable to tolerate fluids, heavy vaginal bleeding, feeling like fainting, fever, or any acute concerns]. Prescriptions: New hydroxyzine HCl 25 mg tablet 25 mg PO TID PRN (Reason: anxiety) Qty: 10 RF: 0 No Action acetaminophen [Tylenol] 325 mg Tablet 325 mg PO PRN PRN (Reason: Pain (Scale Score 1-3)) RF: 0 sumatriptan succinate [Imitrex] 50 MG tablet 50 mg PO PRN PRN (Reason: Headache) RF: 0 Probiotic Acidophilus 1.5 mg (250 million cell) Capsule 2,000 mmu cells PO BID RF: 0 Referrals: Geena Cuba MD [Physician] - Hamlet Duque MD [Primary Care Provider] -
[2019-06-17] MEDS: LORazepam 0.5 MG TABLET PO (20:42)
[2019-06-17 21:01] LABS: Add Manual Diff / Slide Review NO; Basophils Absolute Auto 100 /uL (0-100); Basophils Percent Auto 0.7 % (0-2); Eosinophils Absolute Auto 100 /uL (0-450); Eosinophils Percent Auto 1.5 % (2-4); Hematocrit 39.4 % (36-46); Hemoglobin 13.4 g/dL (12.0-16.0); Lymphocytes Absolute Auto 3500 /uL (1100-4500); Lymphocytes Percent Auto 42.6 % (25-40); Mean Corpuscular HGB Conc 34.1 % (30-36); Mean Corpuscular Hemoglobin 29.6 PG (26-34); Mean Corpuscular Volume 86.8 fL (80-100); Monocytes Absolute Auto 500 /uL (0-900); Monocytes Percent Auto 6.5 % (3-14); Neutrophils Absolute Auto 4000 /uL (1500-7000); Neutrophils Percent Auto 48.7 % (50-75); Platelet Count 285 X10^3/uL (150-400); Red Blood Cell Count 4.53 X10^6/uL (4.0-5.2); Red Cell Distribution Width 12.7 % (11.6-14.8); White Blood Cell Count 8.3 X10^3/uL (4.5-11.0)
[2019-06-17 21:24] LABS: BUN Creatinine Ratio 31.4 (6-22); Blood Urea Nitrogen 22 mg/dL (7-17); Calcium 9.8 mg/dL (8.4-10.2); Carbon Dioxide 28 mmol/L (22-32); Chloride 100 mmol/L (98-107); Estimated Glomerular Filt Rate > 60.0 mL/min (>60); Glucose 93 mg/dL (70-100); HEMOLYSIS 24 (0-50); Potassium 4.2 mmol/L (3.4-5.1); Sodium 138 mmol/L (137-145)
--- NOTE | 2019-06-17 21:32 | DI.CT.S_ITS ---
PROCEDURE: CT ABDOMEN PELVIS W CON INDICATIONS: bright red vaginal bleeding after partial hystrectomy t-28 d TECHNIQUE: After the administration of intravenous contrast, 5 mm thick sections acquired from the diaphragm to the symphysis. 5 mm coronal and sagittal reformats were acquired. For radiation dose reduction, the following was used: automated exposure control, adjustment of mA and/or kV according to patient size. COMPARISON: None. FINDINGS: Image quality: Excellent. ABDOMEN: Lung bases: Lung bases are clear. Heart size is normal. Solid organs: Liver is normal in size and enhancement. Gallbladder contains a sub-5 mm gallstone without evidence of acute cholecystitis. Biliary system is non dilated. Pancreas enhances normally. Spleen is normal in size and enhancement. No adrenal nodules. Kidneys demonstrate normal size and enhancement, without hydronephrosis. Peritoneum and bowel: Bowel loops demonstrate normal wall thickness and caliber. No free fluid or air. Normal appendix Nodes and vessels: No retroperitoneal or mesenteric adenopathy by size criteria. Aorta and inferior vena cava are normal in size. Miscellaneous: No ventral hernias. PELVIS: Genitourinary: Bladder wall thickness is normal. No definite large pelvic hematoma. No evidence of active extravasation within the pelvis. On image 72, there are punctate hyperdensity seen in the midline anterior abdominal wall, which are indeterminate essentially small focus of subcutaneous bleeding versus calcification. No large fluid collection is seen. There is manuel-incisional stranding and postoperative change. Miscellaneous: No inguinal hernias or adenopathy. Bones: No suspicious bony lesions. No vertebral body compression fractures. IMPRESSION: No large pelvic hematoma or evidence of contrast extravasation to suggest active bleeding Post surgical changes and manuel-incisional inflammatory stranding, with 2 punctate foci of increased attenuation seen in the lower anterior abdominal wall as detailed above, these are technically indeterminate possibly small calcifications versus areas of subtle subcutaneous bleeding Incidental cholelithiasis. No bowel obstruction. Findings concordant with the preliminary study interpretation provided at the time of the exam. Dictated by: Marino Sheikh M.D. on 06/18/2019 at 8:15 Approved by: Marino Sheikh M.D. on 06/18/2019 at 8:22
[2019-06-17] MEDS: KETOROLAC 60 MG/2 ML VIAL 30 MG IV (22:39)
[2019-06-17 22:45] VITALS: BP 121/82; PULSE 62; RESP 12; O2SAT 100
[2019-06-17 23:47] VITALS: BP 121/81; PULSE 64; O2SAT 100
[2019-06-17 23:53] VITALS: BP 121/81; PULSE 62; RESP 15; O2SAT 100
== END 2019-06-17 23:54 | disposition home or self-care (01) ==
PROVIDERS: Emergency Provider Nurse Practitioner Family; Family Provider Family Medicine; PCP Family Medicine
DX: N99.820 Postprocedural hemorrhage of a genitourinary system organ or structure following a genitourinary system procedure (principal); F41.8 Other specified anxiety disorders
CPT/HCPCS: 36415; 74177; 80048; 81003; 85025; 96374; 99284; J1885

== ENCOUNTER 2020-07-06 14:03 | Emergency (ER) | payer OTHER, SELFPAY ==
[2019-05-19 13:47] VITALS: BMI 35.1
[2020-07-06 14:09] VITALS: BP 147/96; PULSE 70; RESP 20; TEMP 36.6; O2SAT 99
--- NOTE | 2020-07-06 15:29 | DI.CT.S_ITS ---
PROCEDURE: CT ANGIO HEAD AND NECK INDICATIONS: headache, familial history of aneurism w/ bleed TECHNIQUE: Pre-contrast 4.5 mm thick sections acquired from the foramen magnum to the vertex. After the administration of intravenous contrast, 1 mm thick sections acquired from the aortic arch through the [place] of [place]. Post-contrast 4.5 mm thick sections then re-acquired from the foramen magnum to the vertex. 3-dimensional ajpncgs-oygomcgse-qtiztlomjc (MIP) and/or volume rendering reformats were acquired of the central intracranial vasculature and neck separately. COMPARISON: None. FINDINGS: Image quality: Excellent. BRAIN: CSF spaces: Ventricles are normal in size and shape. Basal cisterns are patent. No extra-axial fluid collections. Brain: No midline shift. No intracranial bleeds or masses. Xiong-white matter interface appears intact. Skull and face: Calvarium and facial bones appear intact, without suspicious lesions. Orbits appear normal. Sinuses: Sinuses and mastoids are clear. HEAD CT ANGIOGRAPHY: Anterior circulation: Intracranial internal carotid arteries are normal in size and flow. The flow within the paired anterior cerebral arteries is normal and symmetric. The flow within the middle cerebral arteries is normal and symmetric. The anterior communicating artery is seen. No aneurysms are seen. Posterior circulation: Visualized portions of the vertebral arteries demonstrate normal caliber, and join to form a normal appearing basilar artery. Flow within the posterior cerebral arteries is normal and symmetric. No aneurysms are seen. NECK CT ANGIOGRAPHY: Carotid system: The great vessels demonstrate a conventional anatomy as they arise from the aortic arch. The origins of the common carotid arteries appear patent. The common carotid arteries demonstrate normal caliber and courses. The bifurcation regions are both widely patent. The internal carotid arteries demonstrate normal calibers and courses. Posterior circulation: The origins of the vertebral arteries both appear widely patent. The more superior extracranial portions of both vertebral arteries also demonstrate normal courses and calibers. They join to form a normal appearing basilar artery. Soft tissues: Visualized neck soft tissues demonstrate no suspicious abnormalities. Bones: No suspicious bony lesions. Visualized cervical spine appears normally aligned. Focal C6-C7 degenerative change is noted, as on series 12, image 81. IMPRESSION: Negative for acute intracranial hemorrhage. No acute intracranial process is seen. No significant intracranial arterial abnormality is seen. No aneurysms are seen. Within the arteries of the neck, no hemodynamically significant stenosis can be seen. If follow-up is contemplated in this patient, please consider MR angiogram, in attempt to spare radiation in this relatively young patient. Incidental note is made of: Focal C6-C7 degenerative change Any quantitative measurements of stenosis were performed using NASCET criteria. Dictated by: Philipp Woo M.D. on 07/06/2020 at 15:44 Approved by: Philipp Woo M.D. on 07/06/2020 at 15:47
[2020-07-06 15:49] LABS: Add Manual Diff / Slide Review NO; Basophils Absolute Auto 0 /uL (0-100); Basophils Percent Auto 0.5 % (0-2); Eosinophils Absolute Auto 0 /uL (0-450); Eosinophils Percent Auto 0.4 % (2-4); Hematocrit 40.5 % (36-46); Lymphocytes Absolute Auto 2100 /uL (1100-4500); Lymphocytes Percent Auto 23.9 % (25-40); Mean Corpuscular HGB Conc 34.6 % (30-36); Mean Corpuscular Hemoglobin 30.4 PG (26-34); Mean Corpuscular Volume 87.8 fL (80-100); Monocytes Absolute Auto 400 /uL (0-900); Monocytes Percent Auto 4.8 % (3-14); Neutrophils Absolute Auto 6300 /uL (1500-7000); Neutrophils Percent Auto 70.4 % (50-75); Platelet Count 290 X10^3/uL (150-400); Red Blood Cell Count 4.61 X10^6/uL (4.0-5.2); Red Cell Distribution Width 12.7 % (11.6-14.8)
[2020-07-06] MEDS: SODIUM CHLORIDE 0.9% 1,000 ML 1000 ML IV (15:51)
[2020-07-06] MEDS: ACETAMINOPHEN 325 MG TABLET 975 MG PO (15:51)
[2020-07-06] MEDS: ONDANSETRON 4 MG/2 ML INJ IV (15:51)
[2020-07-06 16:00] LABS: Alanine Aminotransferase 17 IU/L (<35); Albumin 4.6 g/dL (3.5-5.0); Albumin Globulin Ratio 1.8 (1.0-2.8); Alkaline Phosphatase 54 U/L (38-126); Aspartate Aminotransferase 24 IU/L (14-36); BUN Creatinine Ratio 16.7 (6-22); Bilirubin Total 0.3 mg/dL (0.2-1.3); Blood Urea Nitrogen 12 mg/dL (7-17); Calcium 9.6 mg/dL (8.4-10.2); Carbon Dioxide 29 mmol/L (22-32); Chloride 103 mmol/L (98-107); Estimated Glomerular Filt Rate > 60.0 mL/min (>60); Globulin 2.6 g/dL (1.7-4.1); Glucose 98 mg/dL (70-100); HEMOLYSIS < 15 (0-50); Potassium 4.2 mmol/L (3.4-5.1); Sodium 137 mmol/L (137-145); Total Protein 7.2 g/dL (6.3-8.2)
[2020-07-06 16:02] LABS: Prothrombin Time 11.6 SECONDS (10.1-12.7)
[2020-07-06 16:05] LABS: PTT Partial Thromboplastin Tim 33 SECONDS (26.4-36.2)
--- NOTE | 2020-07-06 16:33 | ED.HA ---
HPI - Headache General Chief Complaint: Headache Stated Complaint: 'weird head ache' Time Seen by Provider: 07/06/20 16:04 Source: patient and family ( at bedside) Mode of arrival: Ambulatory Limitations: no limitations History of Present Illness HPI Narrative: This is a 44-year-old female comes emergency department with complaint of 1 week of headache. Patient states she has a history of migraines but typically she will have throbbing painful headaches and has photophobia and worsening symptoms with loud noises. She will take Imitrex or Tylenol for these which is often adequate. She states this was a fairly rapid onset behind her right eye and now is more in the right frontal region. She states this is intermittent sort of stabbing sensation. It is not the worst headache of her life she states that her migraines are typically much worse than this but it has not resolved with Tylenol or time. Patient states she had some irritation of her right eye like she thought something might be stuck in [place] she states that is improved but she does have a little bit of blurriness on that side and discomfort. Patient does not were contacts or glasses. She does states she has been reading more in the evening. She denies any new rash. She has noticed some increasing skin tags or skin changes on the right side of her face over the last 6 months. No fevers or chills. She denies any vomiting she has had some mild nausea. No chest pain or shortness of breath. No numbness, tingling or weakness or spread knees. She has had normal ambulation. Patient states that she became concerned because it has not resolved. She does have a brother who has had 2 brain aneurysms that have bled. She follows mostly with a agency sales representative and takes supplements except for her Imitrex which is as needed for migraines. She has had hysterectomy with her fallopian tubes removed but still has her ovaries bilaterally. She denies other surgeries. No allergies to medications. She had Tylenol here initially in the department without much improvement of her symptoms. Related Data Home Medications Medication Instructions Recorded Confirmed acetaminophen [Tylenol] 325 mg PO PRN PRN 10/26/17 06/13/19 sumatriptan succinate [Imitrex] 50 mg PO PRN PRN 10/26/17 06/13/19 Probiotic Acidophilus 2,000 mmu cells PO BID 05/19/19 06/13/19 Previous Rx's Medication Instructions Recorded hydroxyzine HCl 25 mg PO TID PRN #10 tab 06/17/19 Allergies Allergy/AdvReac Type Severity Reaction Status Date / Time No Known Drug Allergies Allergy Verified 06/13/19 14:28 Review of Systems Review of Systems ROS Unobtainable: All systems reviewed & are unremarkable except as noted in HPI and below Patient History Medical History Anxiety Fatigue Low vitamin D level Menorrhagia Surgical History History of third molar tooth extraction (1998) S/p partial hysterectomy with remaining cervical stump Status post delivery (09/22/08) Status post delivery (03/26/14) Status post dilation and curettage (2010) Status post hysteroscopic ablation of endometrium (10/26/17) Status post tubal ligation (03/26/14) Family History (Updated 07/06/20 @ 16:59 by Garima Watson DO) Brother Aneurysm Social History household members: spouse and family Smoking Status: Former smoker alcohol intake: current Smoking Status: Former smoker alcohol intake frequency: 0-2 drinks per day Substance Use Type: marijuana Exam Narrative Exam Narrative: GEN: well nourished, well appearing female, alert and oriented x 3, patient appears to be in mild distress. Patient does appear to have very short episodes were she is more uncomfortable and then pain improved HEENT: Atraumatic, pupils are equal round reactive to light, extraocular movements are intact, nares are clear, there is no conjunctival pallor. Throat is clear without any exudates, erythema, tonsillar enlargement or uvular deviation, patient has some small papules that are flesh colored on the right hairline and cheek but no vesicles, blisters or other erythematous rash or stigmata of shingles or herpes. Visual acuity: right [20/20], left [20/20] without correction. IOP: Right 17 mm Hg, Left 17 mm Hg General: no globe trauma Eyelids: normal inspection Conjunctiva/Sclera: normal inspection Corneas: normal inspection EOM: intact, no palsy/entrapment Pupils: PERRL, normal accomadation, pupil normal Anterior Chambers: normal inspection, no hypema Posterior: normal fundoscopic bilaterally HEART: Regular rate and rhythm without murmur, clicks, rubs. Pulses are equal in upper and lower extremities LUNGS:Lungs clear to auscultation, no wheezes, rales, crackles, chest moves symmetrically ABD:bowel sounds normal, soft, non-tender, no guarding, rebound, rigidity, no masses noted, no hepatosplenomegaly MSCL: Non-tender, no muscle atrophy, muscles strength 5/5 upper and lower extremities, full range of motion, normal gait NEURO:CN 2-12 intact, sensation normal, finger nose finger test normal, heel colbert test normal, no dysarthria. Normal sensation. Initial Vital Signs Initial Vital Signs: Vital Signs Temperature 97.9 F 07/06/20 14:09 Pulse Rate 70 07/06/20 14:09 Respiratory Rate 20 07/06/20 14:09 Blood Pressure 147/96 H 07/06/20 14:09 Pulse Oximetry 99 07/06/20 14:09 Scores GCS [place] coma scale eye opening: Spontaneous [place] coma scale verbal response: Orientated Bryson coma scale motor response: Obey commands Bryson coma scale total score: 15 Course Orders Ordered: ED Orders 07/06/20 15:29 CT angio head and neck Stat 07/06/20 15:43 Complete Blood Count AUTO DIFF Stat Comprehensive Metabolic Panel Stat PTT [Partial Thromboplastin Time] Stat Prothrombin Time INR Stat Discontinued Medications Acetaminophen (Acetaminophen 325 Mg Tablet) 975 mg PO NOW ONE Stop: 07/06/20 15:46 Last Admin: 07/06/20 15:51 Dose: 975 mg Documented by: DIPTI Sodium Chloride (Normal Saline 0.9%) 1,000 mls @ 1,000 mls/hr IV BOLUS ONE Stop: 07/06/20 16:44 Last Admin: 07/06/20 15:51 Dose: 1,000 mls/hr Documented by: DIPTI Ketorolac Tromethamine (Ketorolac 60 Mg/2 Ml Vial) 15 mg IV NOW ONE Stop: 07/06/20 17:17 Last Admin: 07/06/20 17:26 Dose: 15 mg Documented by: AMANDA Metoclopramide HCl (Metoclopramide 10 Mg/2 Ml Inj) 10 mg IV NOW ONE Stop: 07/06/20 17:17 Last Admin: 07/06/20 17:27 Dose: 10 mg Documented by: AMANDA Ondansetron HCl (Ondansetron 4 Mg/2 Ml Inj) 4 mg IV NOW ONE Stop: 07/06/20 15:46 Last Admin: 07/06/20 15:51 Dose: 4 mg Documented by: DIPTI Proparacaine HCl (Proparacaine 0.5% Ophth Rafaela) 1 drops EYE-LEFT NOW ONE Stop: 07/06/20 17:06 Last Admin: 07/06/20 17:27 Dose: 1 drop Documented by: AMANDA Vital Signs Vital signs: Vital Signs - 8 hr 07/06/20 14:09 07/06/20 17:39 Temperature 97.9 F Pulse Rate 70 82 Respiratory Rate 20 15 Blood Pressure 147/96 H 138/74 Pulse Oximetry 99 98 MDM - Headache Lab Data Attestation: I reviewed the patient's lab results. Result diagrams: 07/06/20 15:43 07/06/20 15:43 Labs: Lab Results 07/06/20 07/06/20 07/06/20 Range/Units 15:43 15:43 15:43 WBC 9.0 (4.5-11.0) X10^3/uL RBC 4.61 (4.0-5.2) X10^6/uL Hgb 14.0 (12.0-16.0) g/dL Hct 40.5 (36-46) % MCV 87.8 (80-100) fL MCH 30.4 (26-34) PG MCHC 34.6 (30-36) % RDW 12.7 (11.6-14.8) % Plt Count 290 (150-400) X10^3/uL Neut % (Auto) 70.4 (50-75) % Lymph % (Auto) 23.9 L (25-40) % [place] % (Auto) 4.8 (3-14) % Eos % (Auto) 0.4 L (2-4) % Baso % (Auto) 0.5 (0-2) % Neut # (Auto) 6300 (8697-4636) /uL Lymph # (Auto) 2100 (3520-9667) /uL [place] # (Auto) 400 (0-900) /uL Eos # (Auto) 0 (0-450) /uL Baso # (Auto) 0 (0-100) /uL PT 11.6 (10.1-12.7) SECONDS INR 1.0 (0.9-1.3) APTT 33 (26.4-36.2) SECONDS Sodium 137 (137-145) mmol/L Potassium 4.2 (3.4-5.1) mmol/L Chloride 103 (98-107) mmol/L Carbon Dioxide 29 (22-32) mmol/L BUN 12 (7-17) mg/dL Creatinine 0.72 (0.52-1.04) mg/dL Estimated GFR > 60.0 (>60) mL/min BUN/Creatinine Ratio 16.7 (6-22) Glucose 98 (70-100) mg/dL Calcium 9.6 (8.4-10.2) mg/dL Total Bilirubin 0.3 (0.2-1.3) mg/dL AST 24 (14-36) IU/L ALT 17 (<35) IU/L Alkaline Phosphatase 54 (38-126) U/L Total Protein 7.2 (6.3-8.2) g/dL Albumin 4.6 (3.5-5.0) g/dL Globulin 2.6 (1.7-4.1) g/dL Albumin/Globulin Ratio 1.8 (1.0-2.8) Imaging Data CTA - brain/neck: Radiologist's Impression: [address] [id number] Scan ReportSigned Patient: Bear MartinezLouann#: [id number]: [id number]:[id number]/Sex: 44 / FDate of Service: 07/06/20Loc: EDAccession Number: [id number] Procedure: CT angio head and neck Ordering Provider: Garima Watson D.O. PROCEDURE: CT ANGIO HEAD AND NECK INDICATIONS: headache, familial history of aneurism w/ bleed TECHNIQUE: Pre-contrast 4.5 mm thick sections acquired from the foramen magnum to the vertex. After the administration of intravenous contrast, 1 mm thick sections acquired from the aortic arch through the [place]. Post-contrast 4.5 mm thick sections then re-acquired from the foramen magnum to the vertex. 3-dimensional baghrsf-jsyxcigsq-srpqwbjqaw (MIP) and/or volume rendering reformats were acquired of the central intracranial vasculature and neck separately. COMPARISON: None. FINDINGS: Image quality: Excellent. BRAIN: CSF spaces: Ventricles are normal in size and shape. Basal cisterns are patent. No extra-axial fluid collections. Brain: No midline shift. No intracranial bleeds or masses. Xiong-white matter interface appears intact. Skull and face: Calvarium and facial bones appear intact, without suspicious lesions. Orbits appear normal. Sinuses: Sinuses and mastoids are clear. HEAD CT ANGIOGRAPHY: Anterior circulation: Intracranial internal carotid arteries are normal in size and flow. The flow within the paired anterior cerebral arteries is normal and symmetric. The flow within the middle cerebral arteries is normal and symmetric. The anterior communicating artery is seen. No aneurysms are seen. Posterior circulation: Visualized portions of the vertebral arteries demonstrate normal caliber, and join to form a normal appearing basilar artery. Flow within the posterior cerebral arteries is normal and symmetric. No aneurysms are seen. NECK CT ANGIOGRAPHY: Carotid system: The great vessels demonstrate a conventional anatomy as they arise from the aortic arch. The origins of the common carotid arteries appear patent. The common carotid arteries demonstrate normal caliber and courses. The bifurcation regions are both widely patent. The internal carotid arteries demonstrate normal calibers and courses. Posterior circulation: The origins of the vertebral arteries both appear widely patent. The more superior extracranial portions of both vertebral arteries also demonstrate normal courses and calibers. They join to form a normal appearing basilar artery. Soft tissues: Visualized neck soft tissues demonstrate no suspicious abnormalities. Bones: No suspicious bony lesions. Visualized cervical spine appears normally aligned. Focal C6-C7 degenerative change is noted, as on series 12, image 81. IMPRESSION: Negative for acute intracranial hemorrhage. No acute intracranial process is seen. No significant intracranial arterial abnormality is seen. No aneurysms are seen. Within the arteries of the neck, no hemodynamically significant stenosis can be seen. If follow-up is contemplated in this patient, please consider MR angiogram, in attempt to spare radiation in this relatively young patient. Incidental note is made of: Focal C6-C7 degenerative change Any quantitative measurements of stenosis were performed using NASCET criteria. Dictated by: Philipp Woo M.D. on 07/06/2020 at 15:44 Approved by: Philipp Woo M.D. on 07/06/2020 at 15:47 MDM Narrative Medical decision making narrative: This a 44 year female who comes to the emergency department with complaint of a ?weird headache? she has had migraines in the past but states this is a different pattern. Started behind her eye went to her frontal right side which is intermittent. She states not as intense, it was sudden but not the worst headache of her life. She does have a family history significant for brother with 2 prior brain bleed secondary to aneurysm. Patient is not hypertensive, CT of head and angiography are negative today. Patient's labs show no acute changes. She did note she has irritation of her right and visual acuity was normal although she states vision was mildly blurry. Her pressures are normal with no acute changes on eye exam. Suspect she may be having cluster headaches or a Ophthalmology migraine but was recommended to return as she does have significant family history if she has any new or worsening symptoms or does not have improvement of her symptoms. Discharge Plan Departure Patient Disposition: Home Clinical Impression: Headache Instructions: DI for Headache Activity Restrictions/Additional Instructions: Follow up with your physician in the next few days for recheck. Your imaging today does not show any signs of bleeding or aneurysm at this time and I suspect her headache is due to a different cause at this time. You may continue tylenol up to 1000mg every 8 hours as needed for pain. You may try your imitrex again if your symptoms have not resolved. Return to the ER for fevers, severe or worsening headaches, vision loss or decreased vision, facial droop, difficulty speaking, new numbness, weakness or difficulty moving her extremities, passing out, persistent vomiting or other new or concerning symptoms. Prescriptions: No Action acetaminophen [Tylenol] 325 mg Tablet 325 mg PO PRN PRN (Reason: Pain (Scale Score 1-3)) RF: 0 sumatriptan succinate [Imitrex] 50 MG tablet 50 mg PO PRN PRN (Reason: Headache) RF: 0 Probiotic Acidophilus 1.5 mg (250 million cell) Capsule 2,000 mmu cells PO BID RF: 0 hydroxyzine HCl 25 mg tablet 25 mg PO TID PRN (Reason: anxiety) Qty: 10 RF: 0 Referrals: Tran Pozo ND [Primary Care Provider] -
[2020-07-06] MEDS: KETOROLAC 60 MG/2 ML VIAL 15 MG IV (17:26)
[2020-07-06] MEDS: PROPARACAINE 0.5% OPHTH SOL 1 DROPS EYE-LEFT (17:27)
[2020-07-06] MEDS: METOCLOPRAMIDE 10 MG/2 ML INJ IV (17:27)
[2020-07-06 17:39] VITALS: BP 138/74; PULSE 82; RESP 15; O2SAT 98
--- NOTE | 2020-07-17 14:18 | PC.NURSE ---
1000ml NS infused in one hour.
== END 2020-07-06 17:40 | disposition home or self-care (01) ==
PROVIDERS: Emergency Provider Emergency Medicine; Family Provider Family Medicine; PCP Naturopath
DX: R51.9 Headache, unspecified (principal); H53.8 Other visual disturbances; Z82.49 Family history of ischemic heart disease and other diseases of the circulatory system
CPT/HCPCS: 36415; 70496; 70498; 80053; 85025; 85610; 85730; 96361; 96374; 96375; 99283; 99284; J1885; J2405; J2765; Q9967

== ENCOUNTER → 2021-06-09 09:57 | Outpatient (CLI) | payer OTHER, SELFPAY ==
[2019-05-19 13:47] VITALS: BMI 35.1
[2021-06-09 10:38] LABS: COVID19 -Nasal RAPID Negative (Negative)
== END ==
PROVIDERS: Family Provider Family Medicine; PCP Naturopath; Referring Provider Surgery; Visit Provider Surgery
DX: Z01.812 Encounter for preprocedural laboratory examination (principal); Z20.822 Contact with and (suspected) exposure to COVID-19
CPT/HCPCS: 87635; C9803

== ENCOUNTER 2021-06-10 08:37 | Day surgery (SDC) | payer OTHER, SELFPAY ==
[2019-05-19 13:47] VITALS: BMI 35.1
--- NOTE | 2021-06-10 | PATH_ITS ---
[facility] Accession Number: [id number] No. of containers..02 Tissue . 01 Material submitted: . PART A: colon - ASCENDING COLON POLYPS PART B: colon - SIGMOID POLYP . 02 Diagnosis: A. Ascending Colon, Polyps, Biopsies: Tubular adenomas. . B. Sigmoid Colon, Polyp, Biopsy: Tubular adenoma. [facility] 06/14/2021 1514 Local . 02 Electronically signed: . Kizzy Wheeler MD, Pathologist NPI- [id number] . 01 Gross description: . Part A: ASCENDING COLON POLYPS: Received in formalin is 2 fragment(s) of mccann, soft tissue measuring 0.4 x 0.3 x 0.3 cm submitted entirely in 1 cassette(s) Part B: SIGMOID POLYP: Received in formalin is 1 fragment(s) of mccann, soft tissue measuring 0.4 x 0.3 x 0.3 cm submitted entirely in 1 cassette(s) /[facility] 06/14/2021 1519 Local . 02 Pathologist provided ICD-10: D12.2, D12.5 . 02 CPT . 626606, 786901 Specimen Comment: A courtesy copy of this report has been sent to [facility] Pathology Performed at: 01 [facility] Cytology [address] [facility], [place], [place] [id number] MD Narciso Nguyen MD Phone: [phone] Performed at: 02 [facility] [address] [place], [place] [id number] MD Kizzy Wheeler MD Phone: [phone]
[2021-06-10 08:49] VITALS: BP 121/85; PULSE 69; RESP 16; TEMP 36.6; O2SAT 100; BMI 34.5
[2021-06-10] MEDS: LACTATED RINGERS 1,000 ML 84 ML IV (09:14)
--- NOTE | 2021-06-10 09:21 | PM.HP.1 ---
History of Present Illness History of Present Illness Date Patient Seen: 06/10/21 Time Patient Seen: 09:21 Chief complaint: DX COLONOSCOPY Narrative: 45-year-old woman with change of bowel habits and rectal bleeding. Symptoms have improved somewhat since her initial visit but she still feels like there is something in her rectum. Patient History Medical History Anxiety Fatigue Low vitamin D level Menorrhagia Surgical History History of third molar tooth extraction (1998) S/p partial hysterectomy with remaining cervical stump Status post delivery (09/22/08) Status post delivery (03/26/14) Status post dilation and curettage (2010) Status post hysteroscopic ablation of endometrium (10/26/17) Status post tubal ligation (03/26/14) Family & Social History Family History (Updated 07/06/20 @ 16:59 by Garima Watson DO) Brother Aneurysm Social History: household members spouse,family Tobacco & Substance use: Smoking Status Former smoker alcohol intake current alcohol intake frequency 0-2 drinks per day Substance Use Type marijuana Meds Home Medications and Allergies Home Medications Medication Instructions Recorded Confirmed Type acetaminophen 325 mg tablet 325 mg PO PRN PRN 10/26/17 06/10/21 History (Tylenol) sumatriptan succinate 50 mg tablet 50 mg PO PRN PRN 10/26/17 06/10/21 History (Imitrex) Lactobacillus acidophilus 1.5 mg 2,000 mmu cells PO BID 05/19/19 06/10/21 History (250 million cell) capsule (Probiotic Acidophilus) hydroxyzine HCl 25 mg tablet 25 mg PO TID PRN #10 tab 06/17/19 06/10/21 Rx sodium sul 1.479 gram-potas ch See Rx Instructions PO PER PKG DIR 06/02/21 Rx 0.188 gram-magnes sul 0.225 gram #24 tab tablet (Sutab) Allergies Allergy/AdvReac Type Severity Reaction Status Date / Time No Known Drug Allergies Allergy Verified 04/29/21 11:33 Exam Vital Signs (past 8 hours): - 06/10/21 08:49 Temperature 98 F Pulse Rate 69 Respiratory Rate 16 Blood Pressure 121/85 Pulse Oximetry 100 Oxygen Delivery Method Room Air Const General: healthy appearing Resp Effort & Inspection: normal respiratory effort GI Palpation: soft Assessment & Plan Assessment and plan (1) Rectal bleeding: Status: Acute Plan Proceed with colonoscopy. She understands the risks and benefits and would like to proceed. She requires the procedure because she has rectal bleeding and delay in diagnosis of a colorectal malignancy could lead to a worsened health outcome or . COVID-19 COVID-19 status: Negative Result date/Date tested (Pos, Neg/Pending): 06/09/21 Time Spent With Patient Critical Care time: I spent a total of [] minutes of critical care time on this patient's care today; this time is exclusive of procedural time.
[2021-06-10] MEDS: MIDAZOLAM 5 MG/5 ML VIAL IV (09:41)
[2021-06-10] MEDS: fentaNYL 250 MCG/5 ML INJ IV (09:58)
--- NOTE | 2021-06-10 10:03 | PM.OP.COLON ---
Operative Date/Time/Diagnoses Date of procedure: 06/10/21 Time of procedure: 10:03 Pre-op diagnosis: Rectal bleeding and change in bowel function Post-op diagnosis: same Procedure & Clinicians Study performed: Colonoscopy Same procedure as scheduled: Yes Indications: Rectal bleeding and change in bowel function Surgeon: Odin White Procedure Notes SCOAP/Timeout: Yes Procedure in detail: Procedure: The patient was brought to the endoscopy suite, placed in left lateral decubitus position. The patient was connected to monitoring devices. A time-out was performed. Sedation was administered. Once the patient was adequately sedated, a digital rectal exam was performed and was normal except for some external skin tags. The scope was then inserted and advanced to the cecum where the appendiceal orifice was identified and photographed. The scope was then slowly withdrawn over greater than 6 minutes. Mucosa was thoroughly inspected. There were 2 small polyps in the ascending colon removed with Jumbo forceps. There were few scattered diverticula in the sigmoid colon. There was a small sigmoid colon polyp at the distal sigmoid removed with Jumbo forceps. The scope was retroflexed in the rectum. There were internal hemorrhoids. No obvious fissure was noted. The scope was straightened and removed. The patient was awakened and brought to recovery. Versed: 10 mg Fentanyl: 175 mcg EBL: 2 mL Findings: 2 small ascending colon polyps roughly 5 mm and 1 small sigmoid colon polyp roughly 5 mm. Scope withdrawal time: 14 Sedation minutes: 31 Findings: divertiulosis and polyp(s) Post-procedure Recommendations: Will call with biopsy results Disposition: PACU
[2021-06-10 10:07] VITALS: BP 142/89; PULSE 64; RESP 15; TEMP 36.2; O2SAT 100
[2021-06-10 10:11] VITALS: BP 132/88; PULSE 60; RESP 16; O2SAT 100
[2021-06-10 10:18] VITALS: BP 126/93; PULSE 75; RESP 16; O2SAT 99
[2021-06-10 10:21] VITALS: BP 135/88; PULSE 80; RESP 16; TEMP 36.4; O2SAT 99
[2021-06-10 10:37] VITALS: BP 130/79; PULSE 61; RESP 16; TEMP 36.2; O2SAT 100
== END 2021-06-10 10:45 | disposition home or self-care (01) ==
LOC: ENDO 08:38
PROVIDERS: Family Provider Family Medicine; PCP Naturopath; Referring Provider Surgery; Visit Provider Surgery
PROC: 0DJD8ZZ Inspection of Lower Intestinal Tract, Via Natural or Artificial Opening Endoscopic (ICD-10-PCS; CPT 45378; principal; 2021-06-10 09:45)
DX: K62.5 Hemorrhage of anus and rectum (principal); R19.4 Change in bowel habit; K64.8 Other hemorrhoids; D12.2 Benign neoplasm of ascending colon; D12.5 Benign neoplasm of sigmoid colon
CPT/HCPCS: 45380; 99152; 99153; J2250; J3010

== ENCOUNTER → 2023-02-23 11:20 | Outpatient (CLI) | payer OTHER, MEDICAID, SELFPAY ==
[2019-05-19 13:47] VITALS: BMI 35.1
--- NOTE | 2023-02-23 | DI.CT.S_ITS ---
PROCEDURE: CT FACIAL BONES WO CON INDICATIONS: Chronic frontal sinusitis TECHNIQUE: Noncontrast 2.5 mm thick axial images acquired from the mandible through the frontal sinuses, with coronal and sagittal reformatting. For radiation dose reduction, the following was used: automated exposure control, adjustment of mA and/or kV according to patient size. COMPARISON: [facility], CT, CT ANGIO HEAD AND NECK, 07/06/2020, 16:10. FINDINGS: Image quality: Excellent. Bones and teeth: Orbital kurtz are intact. Sinus kurtz show no fracture or deformity. Nasal bones and septum are intact. There is chronic rightward nasal septal deviation. Visualized portions of the mandible demonstrate no fractures or subluxation. Zygomatic arches are intact. Pterygoid plates are intact. Visualized portions of the skull base and auditory canals are intact. Sinuses: There is a mild mucous retention cyst seen along the medial aspect of the right maxillary sinus. The paranasal sinuses otherwise appear clear. Mastoid air cells are aerated. Soft tissues: No edema, masses, or fluid collections. No enlarged lymph nodes. No soft tissue lacerations or debris. Vascular: Visualized vascular structures appear normal in the absence of contrast. Bony vascular foramina and canals are intact. IMPRESSION: No significant active paranasal sinus disease is seen. No significant facial bone abnormality is seen. Dictated by: Philipp Woo M.D. on 02/23/2023 at 14:17 Approved by: Philipp Woo M.D. on 02/23/2023 at 14:19
== END ==
PROVIDERS: Family Provider Family Medicine; PCP Naturopath; Referring Provider Naturopath; Visit Provider Naturopath
DX: J32.1 Chronic frontal sinusitis (principal)
CPT/HCPCS: 70486

== ENCOUNTER → 2023-11-23 10:41 | Outpatient (CLI) | payer OTHER, MEDICAID, SELFPAY ==
[2019-05-19 13:47] VITALS: BMI 35.1
--- NOTE | 2023-11-23 10:45 | DI.RAD.S_ITS ---
PROCEDURE: XR HAND RT MIN 3V INDICATIONS: arthropathy TECHNIQUE: 3 views of the hand(s) acquired. COMPARISON: None. FINDINGS: Bones: No fractures or dislocations. Carpal bones are normally aligned. No suspicious bony lesions. Soft tissues: No suspicious soft tissue calcifications. IMPRESSION: No acute bony abnormality. Dictated by: Claudy Trujillo M.D. on 11/23/2023 at 12:00 Approved by: Claudy Trujillo M.D. on 11/23/2023 at 12:00
--- NOTE | 2023-11-23 10:45 | DI.RAD.S_ITS ---
PROCEDURE: XR HAND LT MIN 3V INDICATIONS: ARTHROPATHY TECHNIQUE: 3 views of the hand(s) acquired. COMPARISON: None. FINDINGS: Bones: No fractures or dislocations. Carpal bones are normally aligned. No suspicious bony lesions. Soft tissues: No suspicious soft tissue calcifications. IMPRESSION: No acute bony abnormality. Dictated by: Claudy Trujillo M.D. on 11/23/2023 at 11:59 Approved by: Claudy Trujillo M.D. on 11/23/2023 at 12:00
--- NOTE | 2023-11-23 10:45 | DI.RAD.S_ITS ---
PROCEDURE: XR KNEE LT 3V INDICATIONS: LEFT KNEE PAIN TECHNIQUE: 3 views of the knee were acquired. COMPARISON: None. FINDINGS: Bones: No fractures or dislocations. No suspicious bony lesions. Tricompartmental joint space narrowing with associated osteophytosis. Soft tissues: Moderate joint effusion. No suspicious soft tissue calcifications. IMPRESSION: Moderate joint effusion. 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 Dictated by: Claudy Trujillo M.D. on 11/23/2023 at 12:00 Approved by: Claudy Trujillo M.D. on 11/23/2023 at 12:00
--- NOTE | 2023-11-23 10:45 | DI.RAD.S_ITS ---
PROCEDURE: XR CERVICAL SPINE 4V OR 5V INDICATIONS: ARTHROPATHY TECHNIQUE: 5 views of the cervical spine acquired. COMPARISON: None. FINDINGS: Bones: No fractures or dislocations to the T1 level. Oblique images demonstrate no bony foraminal stenoses. Mild disc height loss at C5-6, C6-7. Soft tissues: No prevertebral soft tissue swelling. IMPRESSION: Mild disc height loss at C5-6 and C6-7. Dictated by: Claudy Trujillo M.D. on 11/23/2023 at 11:14 Approved by: Claudy Trujillo M.D. on 11/23/2023 at 11:14
== END ==
PROVIDERS: Family Provider Family Medicine; PCP Naturopath; Referring Provider Registered Nurse; Visit Provider Internal Medicine Rheumatology
DX: M17.12 Unilateral primary osteoarthritis, left knee (principal); M12.9 Arthropathy, unspecified; M25.562 Pain in left knee; M25.462 Effusion, left knee
CPT/HCPCS: 72050; 73130; 73562